=== PATIENT | female | born 1960 | race Asian ===

== ENCOUNTER 2021-05-22 08:29 | Outpatient (REF) | payer BC, SELFPAY ==
--- NOTE | ~2021-05-22 | XR_ITS ---
EXAMINATION: XR FOOT, LEFT CLINICAL INFORMATION: Pain COMPARISON: None TECHNIQUE: AP, lateral, and oblique views of the left foot. FINDINGS: There is a comminuted fracture of the distal shaft of the second metatarsal bone. There is slight medial and dorsal displacement of the metatarsal head with respect to the more proximal shaft. No other fracture is seen. There is mild hallux valgus deformity at the first MTP joint. Joint spaces are otherwise normal. Soft tissues are normal. XR/XR foot LT min 3V IMPRESSION: Fracture of the distal shaft of the second metatarsal bone.
== END 2021-05-22 08:30 | disposition home or self-care (01) ==
LOC: HO.HOSX 08:29
PROVIDERS: Visit Provider Physician Assistant
DX: S92.322A Displaced fracture of second metatarsal bone, left foot, initial encounter for closed fracture (principal)
CPT/HCPCS: 73630

== ENCOUNTER 2021-06-20 09:41 | Outpatient (REF) | payer BC, SELFPAY ==
--- NOTE | ~2021-06-20 | XR_ITS ---
EXAMINATION: XR FOOT, LEFT CLINICAL INFORMATION: Pain. COMPARISON: 05/22/2021. TECHNIQUE: AP, lateral, and oblique views of the left foot. FINDINGS: Increased callus formation and bony bridging within a fracture of the distal shaft of the second metatarsal bone. Previously described slight medial displacement is less apparent in this study. There is however, similar appearing dorsal displacement on the lateral view. No new injuries. Hallux valgus and mild degenerative osteoarthritis are again noted. XR/XR foot LT min 3V IMPRESSION: Interval healing of a fracture within the distal shaft of the second metatarsal bone with slightly improved alignment. No new injuries.
== END 2021-06-20 09:42 | disposition home or self-care (01) ==
LOC: HO.HOSX 09:41
PROVIDERS: Visit Provider Physician Assistant
DX: S92.322D Displaced fracture of second metatarsal bone, left foot, subsequent encounter for fracture with routine healing (principal)
CPT/HCPCS: 73630